=== PATIENT | female | born 1945 | race Caucasian/White ===

== ENCOUNTER 2022-01-07 09:50 | Outpatient (CLI) | payer MEDICARE, BC, SELFPAY ==
--- NOTE | 2022-01-07 10:15 | CRLHL7_ITS ---
For Patients: As a result of the Century Cures Act, medical imaging exams and procedure reports are released immediately into your electronic medical record. You may view this report before your referring provider. If you have questions, please contact your health care provider. RIGHT SCREENING MAMMOGRAM WITH COMPUTER-AIDED DETECTION AND TOMOSYNTHESIS TECHNIQUE: CC and MLO views were obtained. These mammographic images have been obtained using full-field digital technique. These mammographic images were interpreted with the benefit of computer-aided detection. Breast Tomosynthesis was used in this interpretation. COMPARISON FILM: 01/06/21, 01/03/19, 01/02/18. FINDINGS: The breasts are almost entirely fatty IMPRESSION: There is no radiographic evidence for malignancy. ASSESSMENT: BI-RADS Category 1: Negative RECOMMENDATION: Routine screening mammogram in 1 year. A lay language report of this examination will be provided to the patient. Rg Christian M.D. Diagnostic Radiologist [email or web address] LYN/Dictated by: Rg Christian MD @ 01/07/2022 11:10:00 AM (Electronically Signed)
== END 2022-01-07 09:51 | disposition home or self-care (01) ==
LOC: MAMMO 09:52
PROVIDERS: PCP Family Medicine; Visit Provider Obstetrics & Gynecology
DX: Z12.31 Encounter for screening mammogram for malignant neoplasm of breast (principal)
CPT/HCPCS: 77063; 77067

== ENCOUNTER 2023-06-04 10:41 | Emergency (ER) | payer MEDICARE, BC, SELFPAY ==
[2023-06-04 10:47] VITALS: BP 188/82; PULSE 76; RESP 20; TEMP 37.4; O2SAT 96; BMI 30.8
[2023-06-04 11:11] LABS: Appearance Urine Clear (Clear); Bilirubin Urine Negative (Negative); Blood Urine 3+ (Negative); Color Urine Yellow (Yellow); Glucose Urine Negative (Negative); Ketones Urine Negative (Negative); Leukocyte Esterase Urine Negative (Negative); Nitrite Urine Negative (Negative); Protein Urine Negative (Negative); Urobilinogen Urine 0.2 (0.2-1.0)
[2023-06-04 11:14] LABS: Squamous Epithelial Cell Urine Few (None-Few); WBC Urine 0-2 (0-5)
[2023-06-04 11:31] LABS: Basophils Absolute Auto 0.02 K/uL (0.00-0.30); Basophils Percent Auto 0.4 % (0.0-3.0); Eosinophils Absolute Auto 0.06 K/uL (0.00-0.50); Eosinophils Percent Auto 1.1 % (0.0-7.0); Hematocrit 43.1 % (33.0-51.0); Hemoglobin* 13.9 gm/dL (12.0-16.0); Mean Corpuscular HGB Conc 32 gm/dL (32-36); Mean Corpuscular Hemoglobin 29 pg (26-34); Mean Corpuscular Volume 89 fL (80-100); Monocytes Percent Auto 7.1 % (0.0-11.0); Neutrophils Percent Auto 73.4 % (42.0-72.0); Platelet Count* 218 K/uL (140-440); RDW Coefficient of Variation % 12.8 % (11.5-15.5); Red Blood Count 4.84 m/uL (4.00-5.20); White Blood Count* 5.62 K/uL (4.50-11.00)
--- NOTE | 2023-06-04 11:38 | US_ITS ---
Patient: JOSH EVANGELISTA Facility:?[facility] Patient ID:?[id number] Site Patient ID:?[id number]. Site :?[id number] Study:?US-Pelvis TA/TV-06/04/2023 1:15:01 PM Ordering Physician:?ED Final Report: INDICATION: Vaginal bleeding. COMPARISON: None. TECHNIQUE: Transabdominal and transvaginal pelvic ultrasound. FINDINGS: The uterus measures 6.1 x 3.6 x 2.2 cm with extensive acoustic shadowing most likely secondary to calcifications. Difficult to identify the endometrial lining. Ovaries are not visualized. No obvious fluid identified within the pelvic cul-de-sac. IMPRESSION: 1. Even though the uterus appears normal in size, extensive acoustic shadowing secondary calcifications; further evaluation with an MRI of the pelvis without and with intravenous gadolinium suggested. 2. Ovaries are not visualized. Dictated by Alyssa Contreras MD @ 06/04/2023 1:59:41 PM Signed by:?Alyssa Contreras MD @06/04/2023 1:59:41 PM (Electronic Signature)
[2023-06-04 11:40] LABS: Slide Review Reflex No
--- NOTE | 2023-06-04 12:21 | ED_ITS ---
HPI - General Adult General Chief complaint: Urogenital Problems, Female Stated complaint: Bright red blood in urine Time Seen by Provider: 06/04/23 10:52 Source: patient Mode of arrival: ambulatory Limitations: no limitations History of Present Illness HPI narrative: 77-year-old female coming in today complaining of vaginal bleeding. States she woke up this morning went to urinate and noticed that there was a good amount of blood in the toilet. She then put on a pad and she has continued to bleed. She denies feeling lightheaded or presyncopal. No chest pain or shortness of breath. Patient denies inserting anything in the vagina. 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 She denies any abdominal or vaginal pain. She does have a history of endometrial thickening. It appears that the patient had a CT scan done by her primary care provider in 2021 where endometrial thickening was noted. Follow-up pelvic ultrasound showed endometrial thickness of 7 mm and 2 small fundal fibroids measuring 0.7 x 0.8 x 0.9 cm, and 1.5 x 0.9 x 1.5 cm. She was told at that time, 2 years ago, that if she were to have any vaginal bleeding she is to return for endometrial sampling. Related Data Home Medications Medication Instructions Recorded Confirmed clobetasol 0.05 % topical ointment g topical 06/13/22 01/27/23 metoprolol succinate 25 mg 25 mg PO DAILY 06/13/22 01/27/23 tablet,extended release 24 hr acetaminophen 500 mg tablet 500 mg PO Q4-6H PRN 08/12/22 01/27/23 calcium citrate 200 mg tab PO ONCE 08/12/22 01/27/23 calcium-vitamin D3 6.25 mcg (250 unit) tablet cetirizine 10 mg tablet 10 mg PO DAILY 08/12/22 01/27/23 cholecalciferol (vitamin D3) 50 50 mcg PO QDAY 08/12/22 01/27/23 mcg (2,000 unit) tablet melatonin 2.5 mg chewable tablet 2.5 mg PO .Bedtime 08/12/22 01/27/23 multivitamin 1 tab PO QAM 08/12/22 01/27/23 zinc acetate 50 mg (zinc) capsule 50 mg PO QDAY 08/12/22 01/27/23 (Galzin) atorvastatin 10 mg tablet 10 mg PO DAILY 06/04/23 06/04/23 metronidazole 0.75 % topical gel topical 06/04/23 Previous Rx's Medication Instructions Recorded clobetasol 0.05 % topical ointment 1 applic topical .COMPLEX PRN 06/13/22 itching #30 grams Allergies Allergy/AdvReac Type Severity Reaction Status Date / Time celena Allergy Intermediate angioedema Verified 01/27/23 14:10 Sulfa (Sulfonamide Allergy Intermediate Rash Verified 01/27/23 14:10 Antibiotics) bee venom protein (honey bee) Allergy Mild arm Verified 01/27/23 14:10 swelling penicillin V Allergy Mild Rash Verified 01/27/23 14:10 amoxicillin Allergy Unknown pt doesn't Verified 01/27/23 14:10 remember Influenza Virus Vaccines Allergy Verified 01/27/23 14:10 Review of Systems Status of ROS: Reports: 10 or more systems reviewed and unremarkable except as noted in History and below [facility] Medical History Hand pain, left ?M79.642 - Pain in left hand (ICD-10) Pain of left thumb ?M79.645 - Pain in left finger(s) (ICD-10) Thumb pain ?M79.646 - Pain in unspecified finger(s) (ICD-10) Pre-syncope ?R55 - Syncope and collapse (ICD-10) Perforation of sigmoid colon due to diverticulitis ?K57.20 - Diverticulitis of large intestine with perforation and abscess without bleeding (ICD-10) Meniere's disease ?H81.09 - Meniere's disease, unspecified ear (ICD-10) Hypertension ?I10 - Essential (primary) hypertension (ICD-10) History of open sigmoidectomy ?Z98.890 - Other specified postprocedural states (ICD-10) ?Z90.49 - Acquired absence of other specified parts of digestive tract (ICD- 10) History of malignant neoplasm of female breast ?Z85.3 - Personal history of malignant neoplasm of breast (ICD-10) History of diverticulitis of colon ?Z87.19 - Personal history of other diseases of the digestive system (ICD-10) Generalized osteoarthritis of multiple sites ?M15.9 - Polyosteoarthritis, unspecified (ICD-10) Surgical History Status post reverse total replacement of left shoulder ?Z96.612 - Presence of left artificial shoulder joint (ICD-10) Status post left mastectomy ?Z90.12 - Acquired absence of left breast and nipple (ICD-10) Status post colostomy takedown ?Z98.890 - Other specified postprocedural states (ICD-10) History of shoulder replacement ?Z96.619 - Presence of unspecified artificial shoulder joint (ICD-10) History of cholecystectomy (11/16/12) ?Z90.49 - Acquired absence of other specified parts of digestive tract (ICD- 10) Social History Smoking Status: Never smoker Exam Narrative: Exam Narrative: Well-nourished well-developed patient in no acute distress. Alert and oriented. Answers questions appropriately. Mood and affect are appropriate. Thoughts are goal oriented and rational. No tangential or magical thinking noted. Patient speaks in full sentences without needing to catch their breath. Patient does have a friend present with her as she states that she has a bad memory. HEENT: Normocephalic atraumatic. Pupils are equally round reactive to light. Extraocular muscles are intact. Conjunctivae are moist without any icterus noted. Moist mucous membranes. Cardiovascular: Heart is regular rate and rhythm. Lungs: Clear to auscultation bilaterally. Abdomen: Soft and nontender nondistended with normal bowel sounds. . Skin: Well perfused without any obvious rashes. : Patient has multiple blackheads over the labia majora, there is no obvious bleeding noted. Patient appears to have some loss of the clitoral wagner. Normal urethral meatus. No adnexal masses or tenderness noted on bimanual exam. No blood at the urethral meatus or inside the vagina noted. Did not visualize her cervix. Const: Vital Signs, click to edit/add: Vital Signs - 24 hr 06/04/23 10:47 Temperature 99.3 F Pulse Rate [Pulse Oximeter] 76 Respiratory Rate 20 Blood Pressure [Ri ght Upper Arm] 188/82 H Pulse Oximetry 96 Oxygen Delivery Me thod Room Air Course Course ED Course: UA showed 3+ blood, 2-5 RBCs. CBC unremarkable. Ultrasound: Extensive shadowing, inconclusive. Vital Signs Vital signs: Initial Vital Signs Temperature 99.3 F 06/04/23 10:47 Temperature Source Temporal Artery Scan 06/04/23 10:47 Pulse Rate 76 06/04/23 10:47 Respiratory Rate 20 06/04/23 10:47 Blood Pressure 188/82 H 06/04/23 10:47 Blood Pressure Mean 117 H 06/04/23 10:47 Pulse Oximetry 96 06/04/23 10:47 Oxygen Delivery Method Room Air 06/04/23 10:47 Vital Signs Temperature 99.3 F 06/04/23 10:47 Pulse Rate 76 06/04/23 10:47 Respiratory Rate 20 06/04/23 10:47 Blood Pressure 188/82 H 06/04/23 10:47 Pulse Oximetry 96 06/04/23 10:47 Oxygen Delivery Method Room Air 06/04/23 10:47 Temperature 99.3 F 06/04/23 10:47 Pulse Rate 76 06/04/23 10:47 Respiratory Rate 20 06/04/23 10:47 Blood Pressure 188/82 H 06/04/23 10:47 Pulse Oximetry 96 06/04/23 10:47 Oxygen Delivery Method Room Air 06/04/23 10:47 Medical Decision Making MDM Narrative Medical decision making narrative: 77-year-old female with vaginal bleeding. Given her history of having an thickened endometrial stripe, I do think that the next step would be to do an endometrial biopsy. Patient will follow-up with OBGYN for further management. Medical Records Medical records reviewed: Yes I reviewed the patient's medical records Lab Data Lab results reviewed: Yes I reviewed the patient's lab results Labs: Lab Results 06/04/23 06/04/23 Range/Units 10:56 11:22 WBC 5.62 (4.50-11.00) K/uL RBC 4.84 (4.00-5.20) m/uL Hgb 13.9 (12.0-16.0) gm/dL Hct 43.1 (33.0-51.0) % MCV 89 (80-100) fL MCH 29 (26-34) pg MCHC 32 (32-36) gm/dL RDW Coeff of Penny 12.8 (11.5-15.5) % Plt Count 218 (140-440) K/uL Neut % (Auto) 73.4 H (42.0-72.0) % Lymph % (Auto) 18.0 L (20-44) % [place] % (Auto) 7.1 (0.0-11.0) % Eos % (Auto) 1.1 (0.0-7.0) % Baso % (Auto) 0.4 (0.0-3.0) % Neut # (Auto) 4.10 (1.7-7.0) K/uL Lymph # (Auto) 1.00 (0.90-2.90) K/uL [place] # (Auto) 0.40 (0.00-0.90) K/UL Eos # (Auto) 0.06 (0.00-0.50) K/uL Baso # (Auto) 0.02 (0.00-0.30) K/uL Abs Immat Gran (auto) 0.00 (0.00-0.30) K/uL Imm/Tot Granulo (auto) 0.0 % Urine Color Yellow (Yellow) Urine Appearance Clear (Clear) Urine pH 7.0 (5.0-8.5) Ur Specific [place] 1.010 (1.000-1.030) Urine Protein Negative (Negative) Urine Glucose (UA) Negative (Negative) Urine Ketones Negative (Negative) Urine Blood 3+ A (Negative) Urine Nitrite Negative (Negative) Urine Bilirubin Negative (Negative) Urine Urobilinogen 0.2 (0.2-1.0) Ur Leukocyte Esterase Negative (Negative) Urine RBC 5-10 A (0-2) Urine WBC 0-2 (0-5) Ur Squamous Epith Cells Few (None-Few) Urine Bacteria None (None) Imaging Data US - abdomen: Attestation: I have reviewed the pertinent imaging results. Radiologist's impression: Transabdominal and transvaginal pelvic ultrasound. FINDINGS: The uterus measures 6.1 x 3.6 x 2.2 cm with extensive acoustic shadowing most likely secondary to calcifications. Difficult to identify the endometrial lining. Ovaries are not visualized. No obvious fluid identified within the pelvic cul-de-sac. IMPRESSION: 1. Even though the uterus appears normal in size, extensive acoustic shadowing secondary calcifications; further evaluation with an MRI of the pelvis without and with intravenous gadolinium suggested. 2. Ovaries are not visualized. Discharge Plan Discharge Clinical Impression: Abnormal vaginal bleeding Patient Disposition: Home, Self-Care Condition: Stable Additional Instructions: You will need to call the OBGYN clinic 1st thing Monday morning to set up a follow-up appointment. You should request an appointment for an ER follow-up visit for abnormal vaginal bleeding. The number will be provided to you today. Prescriptions: No Action metoprolol succinate 25 mg tablet extended release 24 hr 25 mg PO DAILY clobetasol 0.05 % ointment topical cholecalciferol (vitamin D3) 50 mcg (2,000 unit) tablet 50 mcg PO QDAY multivitamin Tablet 1 tab PO QAM Galzin 50 mg (zinc) capsule 50 mg PO QDAY melatonin 2.5 mg tablet,chewable 2.5 mg PO .Bedtime calcium citrate-vitamin D3 200 mg-6.25 mcg (250 unit) tablet PO ONCE cetirizine 10 mg tablet 10 mg PO DAILY acetaminophen 500 mg tablet 500 mg PO Q4-6H PRN atorvastatin 10 mg tablet 10 mg PO DAILY metronidazole 0.75 % gel topical clobetasol 0.05 % ointment 1 applic topical .COMPLEX PRN (Reason: itching) Qty: 30 6RF Rx Instructions: 1 applic topically twice weekly PRN; Follow Up/Referrals: Jose Garcia MD [Primary Care Provider] - Stand Alone Forms: [place] Info Instructions
== END 2023-06-04 14:27 | disposition home or self-care (01) ==
PROVIDERS: Emergency Provider Family Medicine; PCP Family Medicine
DX: N93.9 Abnormal uterine and vaginal bleeding, unspecified (principal)
CPT/HCPCS: 36415; 76830; 76856; 76857; 81001; 85025; 87086; 99284

== ENCOUNTER 2023-07-25 08:37 | Day surgery (SDC) | payer MEDICARE, BC, SELFPAY ==
--- OUTSIDE RECORDS SUMMARY | 2023-07-25 08:39 | XMS_ITS ---
Author Name Unknown Organization [facility] Address [address] [place] [address] Care Team Providers Care Physics Professor Name Role Phone Unavailable Unavailable Unavailable Surgery Details Not on file Complications Check Surgery Details section. Procedure Estimated Blood Loss Check Surgery Details section. Procedure Findings Check Surgery Details section. Procedure Specimens Taken Check Surgery Details section.
--- OUTSIDE RECORDS SUMMARY | 2023-07-25 08:39 | XMS_ITS | Clinical Summary ---
Author Name Unknown Organization [facility] Address [address] [place] [address] Care Team Providers Care Cashier Parking Lot Name Role Phone Unavailable Primary Care Provider Unavailabl e Source Comments Patient records contain information from all sites at [facility]. For routine questions regarding patient records, call [phone] during business hours, M-F 8:00 AM - 5:00 PM Central Time. Record requests for emergency care only can be directed to [phone] at any time.[facility] Allergies Active Allergy Reactions Criticality Noted Date Comments Amoxicillin Rash 10/27/2010 Bee Venom Protein (Honey Bee) Edema (Reselect Reaction) 10/27/2010 Influenza Virus Vac. Tri-Split Edema (Reselect Reaction) reacted [place] Number Two 10/27/2010 Other reaction(s): irritated throat Sulfa (Sulfonamide Antibiotics) Rash High 08/12/2022 Medications Medication Sig Dispensed Refills Start Date End Date Status aspirin [address] tablet Take 1 tablet by mouth at bedtime. 05/20/2011 Active meclizine (ANTIVERT) 25 mg chewable tablet Chew 1 tablet. 11/21/2014 Active [id number] p-felicia-bor 600 mg calcium- 800 unit-50 mg tablet Take 1 tablet by mouth 2 (two) times a day. 11/21/2014 Active clindamycin (CLEOCIN) 150 mg capsule Take 4 capsules by mouth. 05/20/2011 Active glucosamine sulfate (GLUCOSAMINE ORAL) Take 1 tablet by mouth 3 (three) times a week. 700 mg plus 700 mg MSM 12/08/2016 Active triamcinolone (KENALOG) 0.025 % cream Apply topically. 12/07/2015 Active acetaminophen (TYLENOL) 500 mg tablet Take 1 tablet by mouth as needed. 05/20/2011 Active cetirizine (ZyrTEC) 10 mg tablet Take 1 tablet by mouth daily as needed. 12/03/2015 Active multivitamin tablet Take by mouth. 08/08/2007 A ctive metoprolol succinate (TOPROL-XL) 25 mg 24 hr tablet Take 25 mg by mouth. 04/18/2018 Acti ve cholecalciferol (VITAMIN D3) 2,000 Unit capsule Take 2,000 Units by mouth. 05/21/2014 Active miscellaneous medical supply misc CPAP machine for home use at pressure: 4-15 cm/H2O , Heated humidifier x 1, Humidifier chamber x 1, 07/16/2018 Active melatonin 2.5 mg chewable tablet Chew 2.5 mg at bedtime as needed for sleep. Active psyllium (METAMUCIL) 0.52 gram capsule Take 0.52 g by mouth as needed for constipation. Uses 2 a week Active peg 400-propylene glycol (SYSTANE) 0.4-0.3 % ophthalmic solution 1 drop 2 (two) times a day as needed for dry eyes. Active ketoconazole (NIZORAL) 2 % cream Apply to involved areas on face 1-2 times daily as needed. 30 g 1 05/17/2021 Active zinc chelated 50 mg tablet tablet Take 50 mg by mouth. 03/23/2021 A ctive clobetasoL (TEMOVATE) 0.05 % ointment Apply topically. As needed 03/23/2021 Active methylcellulose, with sugar, oral powder Take 1 Dose by mouth daily. 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 No 11/11/2021 Within the last year, have y ou been humiliated or emotionally abused in other ways by your partner or ex-partner? No Within the last year, have y ou been kicked, hit, slapped, or otherwise physically hurt by your partner or ex-partner? No 11/11/2021 Within the last year, have y ou been raped or forced to have any kind of sexual activity by your partner or ex-partner? No 11/11/2021 Social Connection and Isolat ion Panel [NHANES] Answer Date Recorded In a typical week, how many times do you talk on the phone with family, friends, or neighbors? More than three times a week 11/11/2021 How often do you get togethe r with friends or relatives? Twice a week 11/11/2021 How often do you attend chur or temple services? More than 4 times per year 11/11/2021 Do you belong to any clubs o r organizations such as religious groups, unions, fraternal or athletic groups, or school groups? Yes 11/11/2021 How often do you attend meet ings of the clubs or organizations you belong to? More than 4 times per year 11/11/2021 Are you , , di vorced, , never , or living with a partner? 11/11/2021 AUDIT-C Answer Date Recorded Q1: How often do you have a drink containing alcohol? Monthly or less 11/11/2021 Q2: How many drinks containi ng alcohol do you have on a typical day when you are drinking? Patient does not drink Q3: How often do you have si x or more drinks on one occasion? Never 11/11/2021 Overall Financial Resource Strain (CARDIA) Answe r Date Recorded How hard is it for you to pa y for the very basics like food, housing, medical care, and heating? Not hard at all 02/01/2023 [facility] [facility] Occupat ional Health - Occupational Stress Questionnaire Answer Date Recorded Do you feel stress - tense, restless, nervous, or anxious, or unable to sleep at night because your mind is troubled all the time - these days? Only a little 11/11/2021 Exercise Vital Sign Answer Date Recorde d On average, how many days pe r week do you engage in moderate to strenuous exercise (like a brisk walk)? 3 days 02/01/2023 On average, how many minutes do you engage in exercise at this level? 30 min 02/01/2023 Hunger Vital Sign Answer Date Recorded Within the past 12 months, y ou worried that your food would run out before you got the money to buy more. Never true 02/02/20 23 Within the past 12 months, t he food you bought just didn't last and you didn't have money to get more. Never true 02/01/2023 PRAPARE - Transportation Answer Date Re corded In the past 12 months, has l ack of transportation kept you from medical appointments or from getting medications? No 10/2022 In the past 12 months, has l ack of transportation kept you from meetings, work, or from getting things needed for daily living? No 02/01/2023 Nutrition Answer Date Recorded Nutrition: EVOO Fat Source No 02/01 On average, how many serving s of fruits and vegetables do you eat per day (serving size is equal to 1 cup or approximately the size of a tennis ball)? 3-5 02/01/2023 Dental Answer Date Recorded Dental: Regular Dentist Yes 05/13/19 Employment Answer Date Recorded Employment status Retired 02/01/2023 Housing Stability Answer Date Recorded What is your living situation today? I have a [facility] live 02/01/2023 Education Answer Date Recorded What is the highest level of school you have completed or the highest degree you have received? Master's degree (e.g., MA, MS, Jung, MEd, GUN EXAMINER, BEN) 05/13/2021 Sex and Gender Information Value Date Recorded Sex Assigned at Female 05/13/2021 1:03 PM UX CONSULTANT Gender Identity Female 05/13/2021 1:03 PM UX CONSULTANT Sexual Orientation Straight 05/13/2021 1: 03 PM UX CONSULTANT Last Filed Vital Signs Vital Sign Reading Time Taken Comments Blood Pressure 168/90 12/08/2016 2:19 PM CDT Pulse 74 12/08/2016 2:19 PM CDT Temperature - - Respiratory Rate - - Oxygen Saturation - - Inhaled Oxygen Concentration - - Weight 90.4 kg (199 lb 4.7 oz) 12/08/2016 2:19 P M CDT Height 167 cm (5' 5.75) 12/08/2016 2:19 PM CDT Body Mass Index 32.41 12/08/2016 2:19 PM CDT Plan of Treatment Health Maintenance Due Date Last Done Comments Hepatitis C Screening 1945 Depression Screening (Annual PHQ-2) 03/27/2023 Fall Risk Screen (Annual) 03/27/2023 COVID-19 Vaccine (2022-24 season) 2023 06/01/2023, 01/04/2022, 07/22/2021, Additional history exists DTaP,Tdap,and Td Vaccines (4 - Td or Tdap) 04/07/2027 04/07/2017, 01/10/2012, 10/13/2006, Additional history exists Colonoscopy Discontinued 09/07/2011 (Perf ormed elsewhere) Colorectal Cancer Screening Discontinued Zoster Vaccines Completed 02/19/2021, 04/2020, 02/29/2012 Mammogram Discontinued 01/07/2022, 12/25, 01/06/2020, Additional history exists Pneumococcal vaccine (65+ years) Completed 05/30/2022, 03/13/2015, 02/16/2011, Additional history exists CT Colonography Discontinued Cologuard Discontinued FIT Discontinued HPV Vaccines Aged Out No longer eligi ble based on patient's age to complete this topic Medical Devices Implanted Type Area Mine Motor Operator Device Identifier Shelf Expiration Date Model / Serial / Lot Conversions - Default Historical Implant Device Implanted:2014 (Quantity not on file) Knee Implant Description:Device Status Te xt - Knee Imp. both knees replaced. Procedures Procedure Name Priority Date/Time Associated Diagnosis Comments OUTSIDE MG MAMMOGRAM Routine 01/07/2022 10:20 AM CDT from Last 3 Months or Most Recently Relevant to Health Maintenance Results * MM screening mammo unilat RT-Outside Mammogram (01/07/2022 10:20 AM CDT) Narrative [facility] - 06/02/2023 3:43 PM UX CONSULTANT This order has been created and auto-finalized to support the import of outside images. If available, original interpretation can be found on the Media Tab in Chart Review, in Document Viewer, or as an image in QREADS. If a re-interpretation or overread is required please follow defined workflow. ?? Provider Not In System IMG BI PROCEDURES [facility] NA from Last 3 Months or Most Recently Relevant to Health Maintenance Advance Directives For more information, please contact: [phone] Documents on File Type Date Recorded Patient Dog Walker Expl anation Advance Directives 11/15/2012 12:00 AM Leg acy document. See document viewer.
--- OUTSIDE RECORDS SUMMARY | 2023-07-25 08:39 | XMS_ITS | Referral Summary ---
Author Name Unknown Organization [facility] Address [address] [place] [address] Care Team Providers Care Rental Agent Name Role Phone Unavailable Primary Care Provider Unavailabl e Source Comments Patient records contain information from all sites at [facility]. For routine questions regarding patient records, call [phone] during business hours, M-F 8:00 AM - 5:00 PM Central Time. Record requests for emergency care only can be directed to [phone] at any time.[facility] Allergies Active Allergy Reactions Criticality Noted Date Comments Amoxicillin Rash 10/27/2010 Bee Venom Protein (Honey Bee) Edema (Reselect Reaction) 10/27/2010 Influenza Virus Vac. Tri-Split Edema (Reselect Reaction) reacted [place] 10/27/2010 Other reaction(s): irritated throat Sulfa (Sulfonamide Antibiotics) Rash High 08/12/2022 Medications Medication Sig Dispensed Refills Start Date End Date Status aspirin [address] tablet Take 1 tablet by mouth at bedtime. 05/20/2011 Active meclizine (ANTIVERT) 25 mg chewable tablet Chew 1 tablet. 11/21/2014 Active [id number] p-felicia-bor 600 mg calcium- 800 unit-50 mg [...] How often do you attend chur or yazidi services? More than 4 times per year 11/11/2021 Do you belong to any clubs o r organizations such as orthodoxy groups, unions, fraternal or athletic groups, or [...] and heating? Not hard at all 02/01/2023 [facility] [place] [facility] - Occupational Stress [...] your living situation today? I have a [facility] place to live 02/01/2023 Education Answer Date Recorded What is the highest level of school you have completed or the highest degree you have received? Master's degree (e.g., MA, MS, Jung, MEd, [employer], [employer]) 05/13/2021 Sex and Gender Information Value Date Recorded Sex Assigned at Female 05/13/2021 1:03 PM [employer] ADVERTISING Gender Identity Female 05/13/2021 1:03 PM [employer] ADVERTISING Sexual Orientation Straight 05/13/2021 1: 03 PM DIRECTOR ADVERTISING Last Filed Vital Signs Vital Sign Reading [...] 12/08/2016 2:19 PM CDT Plan of Treatment Not on file Medical Devices Implanted Type Area Corner Bead Operator Device Identifier Shelf Expiration Date Model [...] CDT) Narrative [facility] - 06/02/2023 3:43 PM DIRECTOR ADVERTISING This order has been created and auto-finalized [...] Advance Directives For more information, please contact: [phone] Documents on File Type Date Recorded 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 See document viewer.
--- OUTSIDE RECORDS SUMMARY | 2023-07-25 08:39 | XMS_ITS | Clinical Summary ---
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 Tri-Split reacted Marquez Angioedema 04/07/2017 Sulfa (Sulfonamide Antibiotics) Rash 03/24/2021 Venom-Honey Bee Edema 11/14/2012 Medications Medication Sig Dispensed Refills Start Date End Date Status CALCIUM + D 600 MG (1,500)-200 UNIT TAB take 1 po daily 0 08/08/2007 Active cetirizine (ZYRTEC) 10 mg tabletIndications:Pre op examination Take 1 tablet by mouth once daily. 0 12/22/2009 Active cholecalciferol (VITAMIN D-3) 2,000 unit capsule Take 1 capsule by mouth once daily. 0 05/21/2014 Active multivitamin (MVI) tablet Take 1 tablet by mouth once daily. 0 07/16/2018 Active psyllium (METAMUCIL) 0.52 gram capsule Take 1 capsule by mouth once daily. 0 01/08/2020 Active melatonin 2.5 mg chew Take by mouth. 0 05/19/2020 Active zinc 50 mg tablet Take 1 Tablet (50 mg) by mouth once daily. 0 03/23/2021 Active clobetasol 0.05% (TEMOVATE 0.05% OINTMENT) 0.05 % ointment Apply topically to affected area(s) 2 times daily. 15 g 03/23/2021 Active CPAPIndications:UMER (obstructive sleep apnea) CPAP machine for home use at pressure: 9 cmw , Heated humidifier x 1 q 5 yr, Humidifier chamber x 1 q 6 mo, nasal face mask x1 q 3mos, with cushion x 2 q mo, Heated tubing x 1 q 3 mo, Headgear x 1 q 6 mo, Filters: Disposable x 2 q mo non-disposable filters x1 q 6mo, Length of Need: 99 months, Frequency of use: Daily 1 Each 11 10/27/2022 Active metroNIDAZOLE (METROGEL) 0.75 % gelIndications:Rosace a Apply topically to affected area(s) two times daily. 45 g 3 06/01/2023 Active clobetasol 0.05% (TEMOVATE 0.05% OINTMENT) 0.05 % ointmentIndications:V ulvar itching Apply twice per week to affected area as needed. 15 g 6 06/01/2023 Active atorvastatin (LIPITOR) 10 mg tabletIndications:ASC VD (arteriosclerotic cardiovascular disease) Take 1 Tablet (10 mg) by mouth once daily. 90 Tablet 3 06/01/2023 Active losartan (COZAAR) 50 mg tabletIndications:Ess ential hypertension Take 1 Tablet (50 mg) by mouth once daily. 90 Tablet 3 06/15/2023 Active dilTIAZem CD (CARDIZEM CD) 120 mg extended release 24 hr capsuleIndications:Es sential hypertension Take 1 Capsule (120 mg) by mouth once daily. 90 Capsule 3 06/15/2023 Active escitalopram oxalate (LEXAPRO) 10 mg tabletIndications:Anx iety Take 1 Tablet (10 mg) by mouth every morning. 30 Tablet 1 07/06/2023 Active Active Problems Problem Noted Date Diagnosed Date Vaginal bleeding 07/06/2023 Vulvar itching 06/01/2023 Rosacea 06/01/2023 Memory loss 06/01/2023 Hand arthritis 06/01/2023 Depression, recurrent 08/12/2022 Essential hypertension 05/21/2021 Meniere's disease 03/23/2021 Generalized osteoarthritis of multiple sites UMER 06/11/2018 AHI-5.6 nasal heated 07/16/2018 Malignant neoplasm of breast 2010. Left Mastectomy, 5 yrs of Arimidex. 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 03/23/2021 05/21/2021 Perforation of sigmoid colon due to diverticulitis 03/23/2021 05/21/2021 Perforation and abscess of l arge intestine concurrent with and due to diverticulitis 03/23/2021 05/21/2021 History of open sigmoidectomy 03/23/2021 05/21/2021 History of malignant neoplas m of female breast 03/23/2021 05/30/2022 Status post colostomy takedown 01/22/2020 05/21/2021 Encounter for laboratory femi ting for severe acute respiratory syndrome coronavirus 2 (SARS-CoV-2) 11/06/2012 05/21/2021 FDC (current) use of anticoagulants 08/10/2009 03/13/2015 Overview: INR Goal Range: 1.5 -2.5 Hypertension 09/09/2008 05/21/2021 Osteoarthrosis, unspecified whether generalized or localized, lower leg 04/28 Diverticulosis of colon (wit hout mention of hemorrhage) 05/21/2021 Overview: Colonoscopy 03/2010 diverticulosis repeat in 10 years Other and unspecified noninf ectious gastroenteritis and colitis(558.9) 04/14 Encounters Date Type Department Care Team Description 07/20/2023 7:40 AM CDT Preop Visit [facility] [address] [place] [address] Jose Garcia MD Preoperative Exam (DOS: 07/25/2023, Hysteroscopy and Dilation and Curettage, Dr. Henning, [facility]) 07/20/2023 Travel 07/17/2023 Telephone [facility] [address] [place] [address] Jose Garcia MD Medication Management (multivitaimin) 07/13/2023 11:45 AM CDT Ancillary Procedure [facility] [address] [place] [address] 07/13/2023 Travel 07/06/2023 8:30 AM CDT Office Visit [facility] [address] [facility] [place] [address] Jose Garcia MD Follow Up (Blood pressure ) 07/06/2023 Travel 07/03/2023 Telephone [facility] [address] [place] [address] Jose Garcia MD Error-please disregard 06/30/2023 2:00 PM CDT Orders Only [facility] [place] [address] Lab, [facility] 06/30/2023 Travel 06/28/2023 2:00 PM CDT Office Visit [facility] [address] [place] [address] Amari Aguayo, AuD Hearing Problem 06/28/2023 Travel 06/21/2023 1:40 PM CDT Office Visit [facility] [address] [facility] [place] [address] Jose Garcia MD Follow Up (Blood pressure) 06/21/2023 Travel 06/16/2023 3:00 PM CDT Nurse/Clinic Staff Only [facility] [address] [place] [address] Blood Pressure 06/15/2023 7:40 AM CDT Office Visit [facility] [address] [facility] [place] [address] Jose Garcia MD Follow Up (Blood pressure ) 06/15/2023 Travel 06/08/2023 Telephone [facility] [address] [place] [address] Jose Garcia MD Blood Pressure 06/08/2023 Nurse/Clinic Staff Only [facility] [address] [place] [address] Jose Garcia MD Blood Pressure 06/07/2023 Lab Requisition [facility] [phone] Janelle Lugo PA-C 06/04/2023 Orders Only [facility] Scanner 1 scan: (1-Ord) [facility], PEL[facility]IC TA AND TV, 06/04/2023 06/04/2023 Orders Only [facility] Scanner 1 scan: (1-Ord) [place], [place]IC , 06/04/2023 06/02/2023 2:20 PM DIRECTOR OF MARKETING ANALYTICS Ancillary Procedure [facility] [address] [place] [address] 06/01/2023 8:30 AM DIRECTOR OF MARKETING ANALYTICS Office Visit [facility] [address] [place] [address] Jose Garcia MD Medicare ANNUAL (subsequent) Visit (77 year old); Concerns (Becoming forgetful/Itchy scalp - started a few months ago/Loud growling sounds in stomach); Derm Problem (Tiny red spots on face); Ankle Pain/problem (Bilateral ankle swelling, right is worse); Hand Pain/problem (Bilateral hand pain, fingers bending); Heart Problem (Increased heart occasionally); Foot Problem (Bump by great toe, bilateral foot, toenail thickening); Medication Management (Discuss zinc/Discuss previnge for memory) 06/01/2023 Travel from Last 3 Months Immunizations Name Administration Dates Next Due COVID-19 Vaccine Spikevax (M oderna 50mcg/0.5mL) 12YO+ Formula PF 06/01/2023 COVID-19 vaccine (Harvest Power[employer] NTech 30mcg/0.3mL) 12YO+ EARLE-SUCROSE PF MDV 07/22/2021 COVID-19 vaccine (Vertive ([employer])-Bio NTech 30mcg/0.3mL) PF MDV 01/26/2021,06/06/2020,05/16/2020 DTaP 10/13/2006 Pneumococcal Conj 20-valent (Prevnar 20) 023 Pneumococcal Poly,23-Valent (Pneumovax) 02/17/20 11,03/27/1997 Pneumococcal conj 13-Valent (Prevnar 13) 015 Td (Age >=7 Years) 03/27/1996 Td, Preservative Free (age >= 7 Years) 8 Tdap 01/10/2012,10/13/2006 Zoster (Shingrix-RZV, recombinant) 02/19/2021, Zoster (Zostavax-ZVL, live) 02/29/2012 Family History Medical History Relation Name Comments Diabetes Father Cancer-breast Maternal Aunt Heart Disease Mother CHF Other Mother meniere's Cancer-colon Neg. 1 Cancer-ovarian Neg. 2 Anesthesia Problem Neg. 3 Cancer-breast Other aunts on both sides of the family with br ca Cancer-breast Paternal Aunt Cancer-breast Sister 1 dx at 47, at 53 of br ca. Other Sister 2 at 69. Other Son ulcerative coli tis/ pre cancerous lesion found Relation Name Status Comments Father Maternal Aunt Mother Alive Neg. 1 Neg. 2 Neg. 3 Other Paternal Aunt Sister 1 Sister 2 Son Social History Tobacco Use Types Packs/Day Years Used Date Smoking Tobacco: Never Smokeless Tobacco: Never Tobacco Cessation:Counseling Given: No Alcohol Use Standard Drinks/Week Comments No 0 (1 standard drink = 0.6 oz pur e alcohol) PHQ-2 Answer Date Recorded PHQ-2 TOTAL SCORE 2 06/01/2023 Social Connections Answer Date Recorded Frequency of Communication with Friends and Fami ly 0 06/01/2023 Financial Resource Strain Answer Date R ecorded Difficulty of Paying Living Expenses 3 06/01/2023 Difficulty of Paying Living Expenses Not on file 06/01/2023 Food Insecurity Answer Date Recorded Worried About Running Out of Food in the Last Ye ar 1 06/01/2023 Transportation Needs Answer Date Record ed Lack of Transportation (Medical) 1 06/01/2023 Housing Stability Answer Date Recorded Unable to Pay for Housing in the Last Year 1 06/01/2023 Sex and Gender Information Value Date Recorded Sex Assigned at Not on file Gender Identity Not on file Sexual Orientation Not on file Obstetrics History Last Filed Vital Signs Vital Sign Reading Time Taken Comments Blood Pressure 145/75 07/20/2023 7:48 AM CDT Pulse 84 07/20/2023 7:48 AM CDT Temperature 36.7 ??C (98.1 ??F) 12/16/2022 1 1:26 AM CDT Respiratory Rate 20 05/26/2020 2:03 PM DIRECTOR OF MARKETING ANALYTICS Oxygen Saturation 95% 07/20/2023 7:48 AM CDT Inhaled Oxygen Concentration - - Weight 83.4 kg (183 lb 12.8 oz) 07/20/2023 7:48 AM CDT Height 166.2 cm (5' 5.43) 07/20/2023 7:48 AM CD T Body Mass Index 30.18 07/20/2023 7:48 AM CDT Plan of Treatment Upcoming Encounters Date Type Department Care Team (Late st Contact Info) Description 08/03/2023 10:10 AM CDT Office Visit [facility] [address] [place] [address] Jose Garcia MD [address] [place] [address] 08/08/2023 8:30 AM CDT Office Visit [facility] [address] [place] [phone] Elan Barfield MD [address] [place] [address] Health Maintenance Due Date Last Done Comments Medicare Wellness for age 65+ 05/31/2023, 05/21/2021, 05/14/2020, Additional history exists COVID-19 vaccine series ( season) 2023 06/01/2023, 01/04/2022, 07/22/2021, Additional history exists Influenza for age 65+ 11/26/2023 Depression screening for age 12+ 05/31/2024 06/01/2023, 08/12/2022, 08/12/2022, Additional history exists BMI (ht and wt on same day) for age 18+ 07/19/2024 07/20/2023, 06/01/2023, 05/30/2022, Additional history exists Tetanus booster 04/07/2027 04/07/2017, 12/25, 10/13/2006, Additional history exists Tdap Completed 01/10/2012, 10/13/2006 Hepatitis C screening for ag e 18-79 Completed 03/12/2014 Zoster (shingles) series for age 50+ Completed 02/19/2021, 11/26/2020, 02/29/2012 Pneumococcal series for age 65+ Completed 05/30/2022, 03/13/2015, 02/16/2011, Additional history exists DEXA/DXA scan for age 65+ Completed 2022, 05/09/2019, 10/26/2011, Additional history exists Procedures Procedure Name Priority Date/Time Associated Diagnosis Comments MR HEAD BRAIN WO Routine 07/13/2023 12:2 0 PM CDT Cognitive change CBC WITH AUTO DIFFERENTIAL Routine 07/06/2023 9:24 AM CDT Fatigue, unspecified type TSH WITH REFLEX Routine 07/06/2023 9:24 AM CDT Fatigue, unspecified type HEPATIC FUNCTION PANEL Routine 07/06/2023 9:24 AM CDT Fatigue, unspecified type CBC WITH AUTO DIFFERENTIAL Routine 07/06/2023 9:24 AM CDT Fatigue, unspecified type FOLIC ACID Routine 07/06/2023 9:24 AM CDT Nutritional deficiency VITAMIN B12 Routine 07/06/2023 9:24 AM CDT Nutritional deficiency BASIC METABOLIC PANEL Routine 06/30/2023 2:10 PM CDT Essential hypertension LAB TRACKING EVENT Routine 06/06/2023 12 :20 PM CDT PATH TISSUE EXAM Routine 06/06/2023 12:2 0 PM CDT SCAN-ULTRASOUND REPORT 06/04/2023 12:00 AM DIRECTOR OF MARKETING ANALYTICS SCAN-ULTRASOUND REPORT 06/04/2023 12:00 AM DIRECTOR OF MARKETING ANALYTICS XR MAMMO MANNIE UNI SCREEN RIGHT Routine 06/02/2023 2:33 PM DIRECTOR OF MARKETING ANALYTICS Visit for screening mammogram BASIC METABOLIC PANEL Routine 06/01/2023 10:18 AM DIRECTOR OF MARKETING ANALYTICS Essential hypertension VITAMIN D 25 (DEFICIENCY) Routine 06/01/2023 10:18 AM DIRECTOR OF MARKETING ANALYTICS Vitamin D deficiency LIPID PANEL W REFLEX MEASURED LDL Routine 06/01/2023 10:18 AM DIRECTOR OF MARKETING ANALYTICS Essential hypertension XR DXA BONE DENSITY 2 SITES AXIAL Routine 05/31/2022 11:19 AM DIRECTOR OF MARKETING ANALYTICS Post-menopausal ANTI HCV Routine 03/12/2014 9:54 AM DIRECTOR OF MARKETING ANALYTICS Need for hepatitis C screening test from Last 3 Months or Most Recently Relevant to Health Maintenance Results * MR HEAD BRAIN WO (07/13/2023 12:20 PM CDT) Anatomical Region Laterality Modality BRAIN, HEAD Magnetic Resonan ce 07/13/2023 2:08 PM CDT Impressions 07/13/2023 2:08 PM CDT 1. No acute infarction, mass effect, or intracranial hemorrhage. No significant change compared to the prior exam. 2. Mild diffuse cerebral volume loss and minimal chronic microvascular ischemic changes. Dictated by Abdiel Camara MD @ 07/13/2023 2:08:34 PM (Electronically Signed) Narrative 07/13/2023 2:08 PM CDT For Patients: ??As a result of the 21st Century Cures Act, medical imaging exams and procedure reports are released immediately into your electronic medical record. ??You may view this report before your referring provider. ??If you have questions, please contact your health care provider. INDICATION: Cognitive change. TECHNIQUE: Multiplanar multisequence noncontrast MR images of the brain. COMPARISON: MRI brain 06/03/2021. FINDINGS: Mild diffuse cerebral volume loss. No mass effect or midline shift. Stable few small FLAIR hyperintensities in the supratentorial white matter, typical for minimal chronic microvascular ischemic changes. No diffusion restriction to suggest acute infarction. No intracranial hemorrhage or pathologic extra-axial fluid collection. The major arterial flow voids at the skull base are preserved. Thinning of the ocular lenses. The paranasal sinuses are well aerated. The mastoid air cells are clear. Procedure Note Abdiel Camara MD - 07/13/2023 For Patients: As a result of the Cures Act, medical imagingexams and procedure reports are released immediately into your electronicmedical record. You may view this report before your referring provider.If you have questions, please contact your health care provider. INDICATION: Cognitive change. TECHNIQUE: Multiplanar multisequence noncontrast MR images of the brain. COMPARISON: MRI brain 06/03/2021. FINDINGS: Mild diffuse cerebral volume loss. No mass effect or midline shift. Stablefew small FLAIR hyperintensities in the supratentorial white matter,typical for minimal chronic microvascular ischemic changes. No diffusion restriction to suggest acute infarction. No intracranialhemorrhage or pathologic extra-axial fluid collection. The major arterial flow voids at the skull base are preserved. Thinning ofthe ocular lenses. The paranasal sinuses are well aerated. The mastoid aircells are clear. IMPRESSION: 1. No acute infarction, mass effect, or intracranial hemorrhage. Nosignificant change compared to the prior exam. 2. Mild diffuse cerebral volume loss and minimal chronic microvascularischemic changes. Dictated by Abdiel Camara MD @ 07/13/2023 2:08:34 PM (Electronically Signed) Jose Garcia MD MR * CBC WITH AUTO DIFFERENTIAL (07/06/2023 9:24 AM CDT) WHITE BLOOD COUNT 5.6 4.5 - 11.0 thou/cu mm 07/06/2023 9:[address] [facility] RED BLOOD COUNT 4.52 4.00 - 5.20 mil/cu mm 07/06/2023 9:[address] [facility] HEMOGLOBIN 13.5 12.0 - 16.0 g/dL 07/06/2023 9:[address] [facility] HEMATOCRIT 41.4 33.0 - 51.0 % 07/06/2023 9:[address] [facility] MCV 92 80 - 100 fL 07/06/2023 9:[address] [facility] MCH 29.9 26.0 - 34.0 pg 07/06/2023 9:[address] [facility] MCHC 32.6 32.0 - 36.0 g/dL 07/06/2023 9:[address] [facility] RDW 13.8 11.5 - 15.5 % 07/06/2023 9:[address] [facility] PLATELET COUNT 275 140 - 440 thou/cu mm 07/06/2023 9:[address] [facility] MPV 9.4 6.5 - 11.0 fL 07/06/2023 9:[address] [facility] % NEUT 74.8 % 07/06/2023 9:[address] [facility] % LYMPH 18.5 % 07/06/2023 9:[address] [facility] % MONO 5.2 % 07/06/2023 9:[address] [facility] % EOS 1.3 % 07/06/2023 9:[address] [facility] % BASO 0.2 % 07/06/2023 9:[address] [facility] ABSOLUTE NEUTROPHILS 4.2 1.7 - 7.0 thou/cu mm 07/06/2023 9:[address] [facility] ABSOLUTE LYMPHOCYTES 1.0 0.9 - 2.9 thou/cu mm 07/06/2023 9:[address] [facility] ABSOLUTE MONOCYTES 0.3 <0.9 thou/cu mm 07/06/2023 9:[address] [facility] ABSOLUTE EOSINOPHILS 0.1 <0.5 thou/cu mm 07/06/2023 9:[address] [facility] ABSOLUTE BASOPHILS 0.0 <0.3 thou/cu mm 07/06/2023 9:[address] [facility] Blood BLOOD SPECIMEN / Unknown Venipuncture / Unknown 07/06/2023 9:24 AM CDT 07/06/2023 9:25 AM CDT Jose Garcia MD HEMATOLOGY [facility] [address] [place] [address], * TSH WITH REFLEX (07/06/2023 9:24 AM CDT) TSH 1.40 0.27 - 4.20 uIU/mL 07/06/2023 5:36 PM CDT [facility] Blood BLOOD SPECIMEN / Unknown Venipuncture / Unknown 07/06/2023 9:24 AM CDT 07/06/2023 9:25 AM CDT Narrative [facility] - 07/06/2023 5:36 PM CDT In Adults, TSH values between 5.00 and 10.00 uIU/ml do not necessarily indicate the presence of Hypothyroidism. Correlation with clinical findings such as presence of goiter and/or Thyroperoxidase (TPO) Antibody may be helpful. For more information please refer to JOSE A 2004; 291: [phone]. Jose Garcia MD CHEMISTRY Performing Organization Address [facility] Co de Phone Number [facility] [address] [place] [address], * (ABNORMAL) FOLIC ACID (07/06/2023 9:24 AM CDT) FOLIC ACID 39.2(H) 4.6 - 34.8 ng/mL 07/06/2023 6:08 PM CDT [facility] Blood BLOOD SPECIMEN / Unknown Venipuncture / Unknown 07/06/2023 9:24 AM CDT 07/06/2023 9:25 AM CDT Narrative [facility] - 07/06/2023 6:08 PM CDT Biotin supplements may cause clinically significant interference for this test assay. ??If interference is suspected, it is strongly recommended that biotin is discontinued for at least one week prior to retesting. Jose Garcia MD CHEMISTRY [facility] [address] [place] [address], * VITAMIN B12 (07/06/2023 9:24 AM CDT) VITAMIN B12 818 232 - 1,245 pg/mL 07/06/2023 5:36 PM CDT [facility] Blood BLOOD SPECIMEN / Unknown Venipuncture / Unknown 07/06/2023 9:24 AM CDT 07/06/2023 9:25 AM CDT [facility] - 07/06/2023 5:36 PM CDT Biotin supplements may cause clinically significant interference for this test assay. ??If interference is suspected, it is strongly recommended that biotin is discontinued for at least one week prior to retesting. Jose Garcia MD CHEMISTRY Performing Organization Address [facility] Co de Phone Number [facility] [address] [place] [address], * HEPATIC FUNCTION PANEL (07/06/2023 9:24 AM CDT) ALBUMIN 4.4 4.0 - 4.9 g/dL 07/06/2023 5:36 PM CDT [facility] PROTEIN,TOTAL 7.0 6.0 - 8.0 g/dL 07/06/2023 5:36 PM CDT [facility] BILIRUBIN,TOTAL 0.4 0.0 - 1.2 mg/dL 07/06/2023 5:36 PM CDT [facility] BILIRUBIN,DIRECT <0.2 0.0 - 0.3 mg/dL 07/06/2023 5:36 PM CDT [facility] BILIRUBIN,INDIRE CT 07/06/2023 5:36 PM CDT [facility] Comment:Unable to calculate, Direct Bili <0.2 ALK PHOSPHATASE 91 35 - 104 IU/L 07/06/2023 5:36 PM CDT [facility] ALT (SGPT) 14 10 - 35 IU/L 07/06/2023 5:36 PM CDT [facility] AST (SGOT) 26 10 - 35 IU/L 07/06/2023 5:36 PM CDT [facility] Blood BLOOD SPECIMEN / Unknown Venipuncture / Unknown 07/06/2023 9:24 AM CDT 07/06/2023 9:25 AM CDT Jose Garcia MD CHEMISTRY [facility] [address] [place] [address], * (ABNORMAL) BASIC METABOLIC PANEL (06/30/2023 2:10 PM CDT) Only the most recent of2 resultswithin the time period is included. SODIUM 141 136 - 145 mmol/L 06/30/2023 10:14 PM CDT [facility] POTASSIUM 4.1 3.5 - 5.1 mmol/L 06/30/2023 10:14 PM CDT [facility] CHLORIDE 104 98 - 107 mmol/L 06/30/2023 10:14 PM T [facility] CO2,TOTAL 26 22 - 29 mmol/L 06/30/2023 10:14 PM T [facility] ANION GAP 11 5 - 18 06/30/2023 10:14 PM T [facility] GLUCOSE 111(H) 70 - 99 mg/dL 06/30/2023 10:14 PM CDT [facility] CALCIUM 9.6 8.8 - 10.2 mg/dL 06/30/2023 10:14 PM CDT [facility] BUN 16 8 - 23 mg/dL 06/30/2023 10:14 PM T [facility] CREATININE 0.73 0.50 - 0.90 mg/dL 06/30/2023 10:14 PM T [facility] BUN/CREAT RATIO 22(H) 10 - 20 04/05/202 4 10:14 PM CDT [facility] eGFR 85(L) >90 mL/min/1.7 3m2 06/30/2023 10:14 PM CDT [facility] Comment:As of 2021, eG FR is calculated by the CKD-EPI creatinine equation without race adjustment. ??eGFR can be influenced by muscle mass, exercise, and diet. ??The reported eGFR is an estimation only and is only applicable if the renal function is stable. Blood BLOOD SPECIMEN / Unknown Venipuncture / Unknown 06/30/2023 2:10 PM CDT 06/30/2023 2:10 PM CDT Jose Garcia MD CHEMISTRY Performing Organization Address [facility] Co de Phone Number [facility] [address] [place] [address], * LAB TRACKING EVENT (06/06/2023 12:20 PM CDT) Other (Other) Client Collect / Unknown 06/06/2023 12:20 PM CDT 06/07/2023 3:42 PM CDT Janelle Lugo PA-C LAB BILL ONLY Performing Organization Address [facility] Co de Phone Number [facility] [address] [place] [address], * PATH TISSUE EXAM (06/06/2023 12:20 PM CDT) Case Report Pathology Report ?Case: [id number] ? Authorizing Provider: ??Janelle Lugo PA-C ?Collected: ? 06/06/2023 1220 ? Ordering Location: ? [facility] ?Received: ?06/07/2023 1635 ? Pathologist: ? Agatha Horn MD ? Specimen: ?Endometrial Biopsy ? 06/09/2023 10:17 AM [facility] LABORATORY Final Diagnosis A) ENDOMETRIUM, BIOPSY: 1. Scant atrophic endometrium and cervical epithelium 2. Negative for hyperplasia, atypia, and malignancy in this sample 06/09/2023 10:17 AM [facility] Comment A) The specimen is scant. However, atrophic endometrium typically yields a scant specimen. If the clinical impression does not correlate with the histologic finding of endometrial atrophy, further endometrial tissue sampling is recommended as clinically indicated. 06/09/2023 10:17 AM [facility] Clinical Information Vaginal bleeding 06/09/2023 10:17 AM [facility] Gross Description A) Received in formalin, labeled with the patient's name and endometrial, is a 1.2 x 0.8 x 0.1 cm aggregate of blood tinged mucous. The specimen is entirely submitted in 1 cassette. EKW 06/07/2023 06/09/2023 10:17 AM [facility] Microscopic Description The final diagnosis is based on microscopic examination of appropriate sections of all specimens. 06/09/2023 10:17 AM [facility] Additional Information Interpreted at [facility], Central Laboratory - [address] [facility] [address] [address] 06/09/2023 10:17 AM CDT [facility] Other (Endometrial Biopsy) 06/06/2023 12:20 PM CDT 06/07/2023 4:35 PM CDT Janelle Lugo PA-C PATHOLOGY/CYTOLOGY [facility] [address] [place] [address], [place] * SCAN-ULTRASOUND REPORT (06/04/2023 12:00 AM DIRECTOR OF MARKETING ANALYTICS) Only the most recent of2 resultswithin the time period is included. Anatomical Region Laterality Modality Other Scanner OTHER * XR MAMMO MANNIE UNI SCREEN RIGHT (06/02/2023 2:33 PM DIRECTOR OF MARKETING ANALYTICS) Anatomical Region Laterality Modality BREASTS, Breast Right Right Mammograph y Impressions 06/06/2023 3:49 PM CDT ??There is no radiographic evidence for malignancy. ??Recommend annual mammograms. MAMMOGRAM ASSESSMENT: ??ACR 1 Negative PATIENTS: You will also receive a letter with your examination results in an easy to read format. ??If you have questions about your results, please contact your referring provider. Narrative 06/06/2023 3:49 PM CDT For Patients: As a result of the Century Cures Act, medical imaging exams and procedure reports are released immediately into your electronic medical record. You may view this report before your referring provider. If you have questions, please contact your health care provider. XR MAMMO MANNIE UNI SCREEN RIGHT [[id number]] CLINICAL HISTORY: ??This is an asymptomatic 77 y.o. patient. INDICATION FOR EXAM: Mammogram Screening. TECHNIQUE: CC & MLO views were obtained. ??This study was evaluated with the assistance of Computer-Aided Detection. Breast Tomosynthesis was used in interpretation. COMPARISON FILM: Yes 01/07/22 Outside Facility 01/06/21 Outside Facility FINDINGS: ??The right breast has scattered areas of fibroglandular density. There are no dominant masses, suspicious micro calcifications or areas of architectural distortion. Jose Garcia MD MAMMO * LIPID PANEL W REFLEX MEASURED LDL (06/01/2023 10:18 AM DIRECTOR OF MARKETING ANALYTICS) CHOLESTEROL,TOTAL 151 100 - 199 mg/dL 06/01/2023 9:43 PM DIRECTOR OF MARKETING ANALYTICS [facility] Comment: Cholesterol, Total Reference Ranges Desirable <200 mg/dL Borderline 200-239 mg/dL High >=240 mg/dL TRIGLYCERIDES 95 <150 mg/dL 06/01/2023 9:43 PM DIRECTOR OF MARKETING ANALYTICS [facility] HDL CHOLESTEROL 72 >40 mg/dL 9:43 PM DIRECTOR OF MARKETING ANALYTICS [facility] NON-HDL CHOLESTEROL 79 <145 mg/dl 06/01/2023 9:43 PM DIRECTOR OF MARKETING ANALYTICS [facility] CHOL/HDL RATIO 2.10 <4.50 06/01/2023 9:43 PM DIRECTOR OF MARKETING ANALYTICS [facility] LDL CHOLESTEROL 60 <=130 mg/dL 06/01/2023 9:43 PM DIRECTOR OF MARKETING ANALYTICS [facility] VLDL CHOLESTEROL 19 <=30 mg/dL 06/01/2023 9:43 PM DIRECTOR OF MARKETING ANALYTICS [facility] PROVIDER ORDERED STATUS RANDOM 06/01/2023 9:43 PM [facility] Blood BLOOD SPECIMEN / Unknown Venipuncture / Unknown 06/01/2023 10:18 AM DIRECTOR OF MARKETING ANALYTICS 06/01/2023 10:19 AM [facility] Jose Garcia MD [facility]Y [facility] [address] [place] [address], * VITAMIN D 25 (DEFICIENCY) (06/01/2023 10:18 AM DIRECTOR OF MARKETING ANALYTICS) VITAMIN D TOTAL 76.9 20.0 - 80.0 ng/mL 06/01/2023 9:43 PM DIRECTOR OF MARKETING ANALYTICS [facility] Blood BLOOD SPECIMEN / Unknown Venipuncture / Unknown 06/01/2023 10:18 AM DIRECTOR OF MARKETING ANALYTICS 06/01/2023 10:19 AM DIRECTOR OF MARKETING ANALYTICS Narrative [facility] - 06/01/2023 9:43 PM DIRECTOR OF MARKETING ANALYTICS ? Vitamin D Status Deficiency: ? <20 ng/mL Insufficiency: ?20-29 ng/mL Sufficiency: ?30-80 ng/mL Possible Toxicity: ??>80 ng/mL Based on [employer] of Medicine recommendations Biotin supplements may cause clinically significant interference for this test assay. ??If interference is suspected, it is strongly recommended that biotin is discontinued for at least one week prior to retesting. Jose Garcia MD SEND OUTS [facility] [address] [place] [address], * (ABNORMAL) XR DXA BONE DENSITY 2 SITES AXIAL (05/31/2022 11:19 AM DIRECTOR OF MARKETING ANALYTICS) Anatomical Region Laterality Modality Spine, HIPS, HIPL, HIPR Other Impressions 06/07/2022 7:32 PM CDT Osteopenia. RECOMMENDATIONS: The National Osteoporosis Foundation recommends pharmacologic treatment for patients with T-scores of -2.5 or less, patients with prior history of fragility fractures, or patients with 10-year probability of greater than 3% at hips or greater than 20% of suffering major osteoporotic fractures. Recommend continued optimization of calcium and vitamin D intake through dietary means and/or supplementation and regular exercise. Repeat scan recommended in 3-5 years. Lazara Salamanca PA-C [facility] 06/07/2022 Narrative 06/07/2022 7:32 PM CDT For Patients: Results are automatically released to your [email or web address]) account once available, in compliance with federal regulations. This means that you may see your results before your provider has had a chance to review them. Please allow 2-3 business days for your provider to comment on the results. XR DXA Bone Mineral Density (BMD) EXAM LOCATION: [address] [address] PATIENT NAME: Doreen Hoyos DATE OF : 1945 EXAM DATE: 05/31/2022 REQUESTING PROVIDER: Jose Garcia MD GENDER AT : female HEIGHT: 5' 5.28 (05/30/2022) WEIGHT: ??189 lb 9.6 oz (05/30/2022) MENOPAUSAL STATUS: Postmenopausal RACE/ETHNICITY: White RISK FACTORS: Aromatase Inhibitors (Arimidex, etc.), Cancer Treatment, Family History of Osteoporosis and White Race CURRENT MEDICATION FOR BONE LOSS: NONE INDICATION: Post-Menopause COMPARISON DATE(S): 2019 DXA scans are compared to prior studies for a patient only when the two (or more) studies were performed on the same scanner. It is not possible to compare data generated on one scanner to data from another because there are not standards in DXA equipment. This applies even if the two scanners are made by the same sewer repairer. PROCEDURE: Dual-energy x-ray absorptiometry performed with routine technique. Reporting is completed in the form of a T-score. The T-score represents the standard deviation from peak bone mass based on young healthy adult. A Z-score is used for diagnosis in premenopausal women, and for men under the age of 50. FINDINGS: RESULT LUMBAR SPINE L1 - L4 BMD: 1.229 g/cm2 T-Score: + 0.3 Z-Score: + 0.9 Change from prior in 2019: ??Increase 2.5%. RESULTS FEMUR Left femoral neck BMD: 0.857 g/cm2 T-Score: - 1.3 Z-Score: - 0.1 Change from prior in 2020: ??Decrease 3.5%. Right femoral neck BMD: 0.875 g/cm2 T-Score: - 1.2 Z-Score: + 0.1 Change from prior in 2020: ??Decrease 1.8%. Left hip BMD: 0.915 g/cm2 T-Score: - 0.7 Z-Score: + 0.3 Change from prior in 2020: ??Decrease 4.5%. Right hip BMD: 0.918 g/cm2 T-Score: - 0.7 Z-Score: + 0.3 Change from prior in 2020: ??Decrease 2.8%. WHO criteria: Normal: T-score at or above -1 SD Osteopenia: T-score between -1.1 and -2.4 SD Osteoporosis: T-score at or below -2.5 SD FRAX RISK CALCULATION (USED FOR OSTEOPENIA ONLY): 10-year probability of major osteoporotic fracture: 9.3%. 10-year probability of hip fracture: 1.6%. Jose Garcia MD DEXA * ANTI HCV (03/12/2014 9:54 AM DIRECTOR OF MARKETING ANALYTICS) HEPATITIS C ANTIBODY Non-Reacti ve Non-Reacti ve 03/12/2014 5:21 PM DIRECTOR OF MARKETING ANALYTICS [facility] Blood specimen (specimen) BLOOD SPECIMEN / Unknown Venipuncture / Unknown 03/12/2014 9:54 AM DIRECTOR OF MARKETING ANALYTICS 03/12/2014 9:54 AM DIRECTOR OF MARKETING ANALYTICS Narrative [facility] - 03/12/2014 5:21 PM DIRECTOR OF MARKETING ANALYTICS Antibodies to HCV not detected; does not exclude the possibility of exposure to HCV. Jose Garcia MD [facility] 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 02/16/11
[2023-07-25 09:19] VITALS: BMI 30.6
[2023-07-25] MEDS: LACTATED RINGERS 1000 ML 1,000 ML 100 ML IV (09:30)
[2023-07-25] MEDS: SODIUM CHLORIDE 0.9 % (FLUSH) 10 ML SYRINGE IVF (09:30)
[2023-07-25 09:40] LABS: Creatinine* 0.7 mg/dL (0.5-1.5); Est. Creatinine Clearance* 42.39; Estimated Glomerular Filt Rate 89 ml/min
--- NOTE | 2023-07-25 10:44 | W.PM.H&PU ---
History & Physical Update History & Physical Update H&P Reviewed and patient assessed: No changes noted H&P Updates: She has not had anymore episodes of postmenopausal bleeding since the last time we spoke.
--- NOTE | 2023-07-25 11:51 | W.ANESCHARGE ---
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
--- NOTE | 2023-07-25 12:01 | P.GYNPRC_ITS ---
Procedure Note Time Seen by Provider: 10:00 Will [facility] bill your pro fee for this procedure?: Yes Procedure Description: Preoperative diagnosis: Doreen is a 77 year-old with postmenopausal bleeding. Postoperative diagnosis: Postmenopausal bleeding 2/2 to endometrial polyps and submucosal fibroid. Procedure: Hysteroscopy, dilation and curettage, polypectomy and myomectomy using the Truclear incisor (soft and dense tissue incisors) Anesthesia: Conscious sedation, paracervical block. Surgeon: Ada Henning MD Financial Services Auditor: None Estimated blood loss: 5 mL Specimen: Endometrial polyp/fibroid to pathology in same specimen container. Findings: Exam under anesthesia: Uterus: mid position, less than 5 week sized, mobile, with no masses or nodularity palpable. Uterus sounded to 6 cm. No adnexal masses or nodularity palpable. On hysteroscopy: 2 endometrial polyps noted. 1 large submucosal fibroid noted at the posterior uterine wall. Bilateral ostia were not appreciated due atrophy. Procedure: Doreen was taken to the operating operating room more conscious sedation was found to be adequate. The patient was placed on in the dorsal lithotomy position and an exam under anesthesia was performed with findings stated above. She was then prepped and draped in a normal sterile manner. A bivalve speculum was placed in the vagina. The cervix appears nulliparous. Otherwise no abnormalities. The paracervical block was placed using 1% lidocaine with epi, 5 mL was injected at the 4 and 8 o'clock positions on the cervix. The anterior lip of the cervix was grasped with long tenaculum. The cervix dilated to Hegar 6. The uterus sounded to 6 cm. The Truclear hysteroscope was advanced into the uterus. A diagnostic hysteroscopy was performed with normal saline as the insufflation medium. Findings are stated above. The Truclear incisor was then advanced through the camera. Polypectomy and global sampling was performed with the soft tissue incisor. Myomectomy was performed with a dense tissue incisor until fibroid was flushed with the posterior uterine wall. The incisor was then removed. I performed 1 pass of the sharp curettage. The endometrial cavity appeared normal after. Saline deficit at the end of the procedure 435 mL. Total saline used 4610 mL. The hysteroscope, tenaculum clamp and speculum were removed from the vaginal canal. The patient tolerated the procedure well. Sponge, lap and instrument counts were correct x2 at the end of the procedure. Surgical debrief and pathology reviewed at the end of the case. The patient was taken to the recovery area in stable condition.
[2023-07-25 12:08] VITALS: BP 118/75; PULSE 71; RESP 16; TEMP 36.2; O2SAT 95
[2023-07-25 12:15] VITALS: BP 131/64; PULSE 70; RESP 16; O2SAT 96
[2023-07-25 12:30] VITALS: BP 142/67; PULSE 73; RESP 16; O2SAT 96
[2023-07-25 12:45] VITALS: BP 135/69; PULSE 68; RESP 16; O2SAT 95
[2023-07-25 13:00] VITALS: BP 131/55; PULSE 57; RESP 16; O2SAT 97
--- NOTE | 2023-07-25 13:19 | W.ANESCHARGE ---
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
== END 2023-07-25 13:17 | disposition home or self-care (01) ==
LOC: OR 08:37
PROVIDERS: PCP Family Medicine; Visit Provider Obstetrics & Gynecology
PROC: 0UDB8ZZ Extraction of Endometrium, Via Natural or Artificial Opening Endoscopic (ICD-10-PCS; CPT 58558; principal; 2023-07-25 09:45)
DX: N95.0 Postmenopausal bleeding (principal); N84.0 Polyp of corpus uteri; D25.0 Submucous leiomyoma of uterus
CPT/HCPCS: 58561; 00952; 36415; 82565; 86850; 86900; 86901; 88305; 99100; J1885; J2405; J2704; J3010; J7120

== ENCOUNTER 2023-08-03 13:00 | Outpatient (RCR) | payer MEDICARE, BC, SELFPAY | END 2023-12-01 23:59 | disposition home or self-care (01) | PROVIDERS: PCP Family Medicine; Visit Provider Family Medicine | DX: R41.89 Other symptoms and signs involving cognitive functions and awareness (principal); Z51.89 Encounter for other specified aftercare | CPT/HCPCS: 97165; 97535; 97542 ==

== ENCOUNTER 2024-09-24 10:15 | Outpatient (RCR) | payer MEDICARE, BC, SELFPAY | END 2024-11-21 14:44 | disposition home or self-care (01) | PROVIDERS: PCP Family Medicine; Visit Provider Family Medicine | DX: S46.811D Strain of other muscles, fascia and tendons at shoulder and upper arm level, right arm, subsequent encounter (principal); Z51.89 Encounter for other specified aftercare | CPT/HCPCS: 97110; 97140; 97161 ==